=== PATIENT | male | born 1950 | race African-American/Black ===

== ENCOUNTER 2016-07-22 11:53 | Emergency (ER) | payer MEDICAID ==
[2013-11-22 13:35] VITALS: BMI 29.5
[~2016-07-22 11:53] MED LIST: COUMADIN5 MG PO; LEVAQUIN500 MG PO; PERCOCET 10/3251 TA1 PO
[2016-07-22 15:52] LABS: UDS - AMPHET NEGATIVE QUAL (NEGATIVE); UDS - BARB NEGATIVE QUAL (NEGATIVE); UDS - BENZO NEGATIVE QUAL (NEGATIVE); UDS - COCAINE POSITIVE QUAL (NEGATIVE); UDS - METH NEGATIVE QUAL (NEGATIVE); UDS - OPIATE NEGATIVE QUAL (NEGATIVE); UDS - PCP NEGATIVE QUAL (NEGATIVE); UDS - THC POSITIVE QUAL (NEGATIVE)
== END 2016-07-22 16:25 | disposition home or self-care (01) ==
LOC: D.ER 11:53
PROVIDERS: Physician Assistant Medical
DX: M17.11 Unilateral primary osteoarthritis, right knee (principal); M54.5 Low back pain; Z79.01 Long term (current) use of anticoagulants

== ENCOUNTER 2016-10-19 19:57 | Emergency (ER) | payer MEDICAID ==
[2013-11-22 13:35] VITALS: BMI 29.5
== END 2016-10-19 20:32 | disposition home or self-care (01) ==
LOC: D.ER 19:57
DX: S91.332A Puncture wound without foreign body, left foot, initial encounter (principal); W45.0XXA Nail entering through skin, initial encounter; Y93.89 Activity, other specified; Y92.89 Other specified places as the place of occurrence of the external cause; L03.116 Cellulitis of left lower limb; F17.200 Nicotine dependence, unspecified, uncomplicated

== ENCOUNTER 2017-02-12 07:48 | Emergency (ER) | payer MEDICAID ==
[2013-11-22 13:35] VITALS: BMI 29.5
== END 2017-02-12 09:10 | disposition home or self-care (01) ==
LOC: D.ER 07:48
DX: S80.01XA Contusion of right knee, initial encounter (principal); X58.XXXA Exposure to other specified factors, initial encounter; Y93.89 Activity, other specified; Y92.019 Unspecified place in single-family (private) house as the place of occurrence of the external cause; F17.200 Nicotine dependence, unspecified, uncomplicated

== ENCOUNTER 2017-07-17 01:55 | Emergency (ER) | payer MEDICAID ==
[2013-11-22 13:35] VITALS: BMI 29.5
[2017-07-17 02:33] LABS: HEMATOCRIT 38.5 % (42.0-54.0); HEMOGLOBIN 12.9 g/dL (13.5-17.5); IMMATURE GRANULOCYTES 0.2 % (0-5); LYMPHOCYTES 46.2 % (15-50); MCH 30.1 pg (26.0-34.0); MCHC 33.5 g/dL (31.0-37.0); MEAN PLATELET VOLUME 9.6 fL (7.4-10.4); MONOCYTES 9.7 % (2-11); NEUTROPHILS 35.9 % (40-80); RBC 4.28 10x6/uL (4.20-6.10); RDW 12.9 % (11.5-14.5)
[2017-07-17 02:34] LABS: PLATELET COUNT 121 10x3/uL (130-400)
[2017-07-17 02:47] LABS: ALBUMIN 3.2 g/dL (3.4-5.0); BILIRUBIN - TOTAL 0.34 mg/dL (0.2-1.3); CALCIUM 8.5 mg/dL (8.5-10.1); CARBON DIOXIDE 27.7 mmol/L (21.0-32.0); CREATININE - SERUM 1.2 mg/dL (0.6-1.3); POTASSIUM - SERUM 3.7 mmol/L (3.5-5.1); PROTEIN - SERUM 6.6 g/dL (6.4-8.2)
[2017-07-17 05:14] LABS: UDS - AMPHET POSITIVE QUAL (NEGATIVE); UDS - BARB NEGATIVE QUAL (NEGATIVE); UDS - BENZO NEGATIVE QUAL (NEGATIVE); UDS - COCAINE POSITIVE QUAL (NEGATIVE); UDS - OPIATE NEGATIVE QUAL (NEGATIVE); UDS - PCP NEGATIVE QUAL (NEGATIVE); UDS - THC POSITIVE QUAL (NEGATIVE)
[2017-07-17 05:24] LABS: APPEARANCE HAZY (CLEAR); BILIRUBIN NEGATIVE (NEGATIVE); COLOR DK YELLOW (YELLOW); GLUCOSE NEGATIVE (NEGATIVE); KETONE NEGATIVE (NEGATIVE); NITRITE NEGATIVE (NEGATIVE); PROTEIN NEGATIVE (NEGATIVE); SPECIFIC GRAVITY 1.015 (1.005-1.020)
[2017-07-17 05:25] LABS: BACTERIA FEW /hpf (NONE SEEN); EPITHELIAL CELLS 0-5 /hpf (0-5)
== END 2017-07-17 06:06 | disposition home or self-care (01) ==
LOC: D.ER 01:55
PROVIDERS: Family Medicine
DX: M17.0 Bilateral primary osteoarthritis of knee (principal); N39.0 Urinary tract infection, site not specified; F15.10 Other stimulant abuse, uncomplicated; F14.10 Cocaine abuse, uncomplicated; F12.10 Cannabis abuse, uncomplicated

== ENCOUNTER 2017-12-21 10:26 | Emergency (ER) | payer MEDICARE ==
[~2017-12-21] VITALS: Ht 175.3 cm; Wt 86.4 kg
[2017-12-21 10:35] VITALS: Ht 175.3 cm; Wt 86.4 kg
[2017-12-21] MEDS ORDERED: CYCLOBENZAPRINE10 MG PO (11:03)
[2017-12-21] MEDS ORDERED: ULTRAM50 MG PO (11:03)
[2017-12-21 11:09] VITALS: BP 148/89
== END 2017-12-21 11:10 | disposition home or self-care (01) ==
LOC: D.ER 10:26
DX: M54.5 Low back pain (principal); M17.11 Unilateral primary osteoarthritis, right knee; I10 Essential (primary) hypertension; F17.200 Nicotine dependence, unspecified, uncomplicated

== ENCOUNTER 2018-03-19 03:26 | Emergency (ER) | payer MEDICARE ==
[~2018-03-19] VITALS: Ht 175.3 cm; Wt 87.3 kg
[~2018-03-19 03:26] MED LIST changes: +CYCLOBENZAPRINE10 MG PO; +ULTRAM50 MG PO
[2018-03-19 03:27] VITALS: Ht 175.3 cm; Wt 87.3 kg
[2018-03-19] MEDS ORDERED: KEFLEX500 MG PO (04:25)
[2018-03-19] MEDS ORDERED: NORCO 7.5/325 T1 TA1 PO (04:26)
[2018-03-19 05:04] VITALS: BP 118/55
== END 2018-03-19 05:04 | disposition home or self-care (01) ==
LOC: D.ER 03:26
DX: J06.9 Acute upper respiratory infection, unspecified (principal); R05 Cough; J02.9 Acute pharyngitis, unspecified; F17.200 Nicotine dependence, unspecified, uncomplicated

== ENCOUNTER 2018-06-14 15:03 | Emergency (ER) | payer MEDICARE ==
[~2018-06-14] VITALS: Ht 175.3 cm; Wt 88.6 kg
[~2018-06-14 15:03] MED LIST changes: +KEFLEX500 MG PO; +NORCO 7.5/325 T1 TA1 PO
[2018-06-14 15:10] VITALS: BP 146/78; Ht 175.3 cm; Wt 88.6 kg
[2018-06-14] MEDS ORDERED: TYLENOL W/CODEI1 TAB PO (15:28)
== END 2018-06-14 16:02 | disposition home or self-care (01) ==
LOC: D.ER 15:03
DX: M25.561 Pain in right knee (principal)

== ENCOUNTER 2018-11-14 09:15 | Emergency (ER) | payer MEDICAID ==
[~2018-11-14] VITALS: Ht 175.3 cm; Wt 84.1 kg
[~2018-11-14 09:15] MED LIST changes: +TYLENOL W/CODEI1 TAB PO
[2018-11-14 09:16] VITALS: Ht 175.3 cm; Wt 84.1 kg
[2018-11-14 11:37] VITALS: BP 124/68
== END 2018-11-14 11:37 | disposition home or self-care (01) ==
LOC: D.ER 09:15
DX: M25.561 Pain in right knee (principal); Z96.651 Presence of right artificial knee joint